=== PATIENT | female | born 1960 | race Caucasian/White ===

== ENCOUNTER 2020-01-06 19:42 | Emergency (ER) | payer BC ==
[~2020-01-06] VITALS: Ht 160 cm; Wt 58.5 kg
[~2020-01-06 19:42] MED LIST: ACCUNEB SO1.25 MG/1 INH; ACTIVELLA 1.0-1 EACH PO; ACTIVELLA1 TAB; ADDERALL 20 MG20 M1 PO; ADDERALL 20 MG20 MG PO; B-100 COMPLEX1 EACH PO; BACTRIM DS TAB1 EACH PO; CALCIUM 500 MG1 EACH PO; CEFTIN 250 MG250 MG PO; DEXILANT60 MG PO; DILAUDID 4 MG TA4 M1; FIORINAL WITH1 EACH PO; FLAGYL500 MG PO; FLECTOR1 EA TP; GLUCOSAMINE CH1 EAC2 PO; HIPREX1 GM PO; KEFLEX500 MG PO; MAGNESIUM MALATE1 GM MC; MELOXICAM15 MG PO; MIRALAX17 GM PO; MULTIVITAMINS1 EAC7 PO; OMEPRAZOLE40 MG PO; OXYCONTIN20 M1 PO; PYRIDIUM200 MG PO; SKELAXIN 800 M800 M1 PO; STOOL SOFTENER100 MG PO; SYNTHROID137 MCG PO; VALIUM5 MG PO; ZANAFLEX4 M1; ZOMIG2.5 M1 NS; [UNRECOGNIZED DRUG - OTHER] INH
[2020-01-06] MEDS ORDERED: NORCO 10-325 T1 EACH PO (22:05)
[2020-01-06 22:28] VITALS: BP 139/70
== END 2020-01-06 22:26 | disposition home or self-care (01) ==
LOC: ER 19:42
DX: S02.2XXA Fracture of nasal bones, initial encounter for closed fracture (principal); S01.21XA Laceration without foreign body of nose, initial encounter; M54.2 Cervicalgia; M54.9 Dorsalgia, unspecified; M79.7 Fibromyalgia; G89.29 Other chronic pain; J45.909 Unspecified asthma, uncomplicated; E03.9 Hypothyroidism, unspecified; K21.9 Gastro-esophageal reflux disease without esophagitis; Z79.899 Other long term (current) drug therapy; Z88.1 Allergy status to other antibiotic agents; Z88.8 Allergy status to other drugs, medicaments and biological substances; W22.8XXA Striking against or struck by other objects, initial encounter; Y93.89 Activity, other specified; Y92.89 Other specified places as the place of occurrence of the external cause; Y99.8 Other external cause status